=== PATIENT | male | born 1970 | race Caucasian/White ===

== ENCOUNTER 2018-02-14 08:10 | Outpatient (CLI) ==
--- NOTE | 2018-02-14 09:04 | DI ---
EXAM: Chest two view, frontal and lateral views. HISTORY: Hypertension. Smoking history. COMPARISON: 10/15/2011. FINDINGS: The heart size is normal. There is no pulmonary vascular congestion. Prominence of the l eft hilum is stable since 2012, likely due to vascular structures. The lungs are clear. No pleural effusion or pneumothorax is seen. No acute osseous abnormality identified. Since the prior study, t here has been no significant interval change. IMPRESSION: No acute cardiopulmonary process.
== END 2018-02-14 08:11 | disposition home or self-care (01) ==
LOC: RAD 08:10
PROVIDERS: ATTEND Internal Medicine
DX: I10 Essential (primary) hypertension (principal); Z87.891 Personal history of nicotine dependence